=== PATIENT | female | born 1990 | race Caucasian/White ===

== ENCOUNTER 2016-09-04 22:55 | Emergency (ER) | payer OTHER ==
[~2016-09-04 22:55] MED LIST: 'PARAFON FORTE500 M1 PO; ACYCLOVIR800 MG PO; AMOXICILLIN500 MG PO; ANAPROX DS550 MG PO; ANUSOL-HC25 MG R; BACTRIM DS 8001 TA1 PO; BENADRYL25 M2 PO; BUSPAR15 MG PO; CATAFLAM50 MG PO; CEPHALEXIN500 M1 PO; CORTISPORIN SUS10 ML OT; DONNATAL 5 ML5 ML PO; ELIMITE 5%60 GM T; FIORICET 325 MG1 TAB PO; GLIPIZIDE10 M2 PO; GLUCOTROL5 MG PO; HYDROCODONE BIT1 T11 PO; KEFLEX500 MG PO; LANTUS100 U/ML SC; LANTUS100 U/ML SQ; LEVEMIR FLEX100 U/ML SC; LIDEX 0.05% CRE15 GM T; LIPITOR10 MG PO; LISINOPRIL HCTZ1 TAB PO; LISINOPRIL10 MG PO; MACROBID100 M1 PO; METFORMIN HCL500 MG PO; METFORMIN1000 MG PO; NAPROSYN500 MG PO; NIX CREME RINSE60 ML TP; NKHM PO; NOVOLOG10 ML SC; PANTOPRAZOLE SO40 MG PO; PEPCID20 MG PO; PEPCID40 MG PO; PREDNICOT20 MG PO; PREDNISONE10 MG PO; PRENATAL1 TA3 PO; PYRIDIUM200 M1 PO; PYRIDIUM200 MG PO; TRAMADOL HCL50 MG PO; ULTRAM50 MG PO; ZESTRIL10 MG PO; ZOFRAN4 MG PO; Zofran4 MG PO
[2016-09-04 23:02] VITALS: BP 125/66
[2016-09-04 23:25] LABS: BILIRUBIN NEGATIVE (NEGATIVE); BLOOD 3+ (NEGATIVE); CLARITY SL CLOUDY (CLEAR); COLOR YELLOW (YELLOW); GLUCOSE 3+ (NEGATIVE); KETONE NEGATIVE (NEGATIVE); LEUKO ESTERASE NEGATIVE (NEGATIVE); NITRITE NEGATIVE (NEGATIVE); PH 5.5 (5.0-9.0); PROTEIN TRACE (NEGATIVE); SPECIFIC GRAVITY 1.025 (1.005-1.030)
[2016-09-04 23:43] LABS: BACTERIA TRACE; EPITHELIAL CELLS 0-2; RBC 21-30 rbc/hpf (0-2)
[2016-09-04 23:44] LABS: MUCOUS 1+; URINE REFLEX COMMENT YES (NO)
[2016-09-05] MEDS ORDERED: AMOXICILLIN500 M2 PO (00:24)
[2016-09-05] MEDS ORDERED: FLUCONAZOLE100 MG PO (00:24)
[2016-09-05 00:41] LABS: BASO # 0.1 10*3/uL (0.0-0.1); BASO % 0.5 % (0.0-1.0); EOS # 0.1 10*3/uL (0.0-0.4); EOS % 1.2 % (1.0-4.0); HEMATOCRIT 38.6 % (37.0-47.0); HEMOGLOBIN 13.2 g/dl (12.0-16.0); LYMPH # 3.5 10*3/uL (1.3-4.4); MEAN CELL VOLUME 82.7 fl (81.0-99.0); MEAN CORPUSCULAR HGB 28.3 pg (27.0-31.0); MEAN CORPUSCULAR HGB CONC 34.2 g/dl (33.0-37.0); MEAN PLATELET VOLUME 9.5 fl (9.6-12.3); MONO # 0.6 10*3/uL (0.1-1.0); MONO % 6.9 % (3.0-9.0); NEUT # 4.9 10*3/uL (2.3-7.9); NEUT % 53.2 % (47.0-73.0); PLATELET COUNT AUTOMATED 265 10*3/uL (130-400); RED BLOOD COUNT 4.67 10*6/uL (4.10-5.10); RED CELL DISTRI WIDTH 12.2 % (0-14.5); WHITE BLOOD COUNT 9.2 10*3/uL (4.8-10.8)
[2016-09-05 00:54] LABS: BUN 9 mg/dl (7-24); CARBON DIOXIDE 28 mmol/L (21-32); CHLORIDE 104 mmol/L (98-107); EST GLOM FILT AFRICAN AMERICAN > 60 ml/min; GLUCOSE 395 mg/dL (65-99); POTASSIUM 3.6 mmol/L (3.5-5.1); SODIUM 137 mmol/L (136-145)
== END 2016-09-05 00:48 | disposition home or self-care (01) ==
LOC: ED 22:55
PROVIDERS: Emergency Medicine Emergency Medical Services; Student in an Organized Health Care Education/Training Program
DX: N76.0 Acute vaginitis (principal); E11.65 Type 2 diabetes mellitus with hyperglycemia; F17.200 Nicotine dependence, unspecified, uncomplicated; Z79.4 Long term (current) use of insulin; Z79.899 Other long term (current) drug therapy

== ENCOUNTER 2016-11-09 15:29 | Emergency (ER) | payer OTHER ==
[~2016-11-09] VITALS: Wt 129.3 kg
[~2016-11-09 15:29] MED LIST changes: +AMOXICILLIN500 M2 PO; +FLUCONAZOLE100 MG PO
[2016-11-09 15:43] VITALS: BP 151/100
[2016-11-09] MEDS ORDERED: BACTRIM DS 8001 TA1 PO (15:54)
== END 2016-11-09 17:46 | disposition home or self-care (01) ==
LOC: ED 15:29
DX: N61.1 Abscess of the breast and nipple (principal); E11.9 Type 2 diabetes mellitus without complications; Z79.899 Other long term (current) drug therapy; Z79.4 Long term (current) use of insulin; Z90.49 Acquired absence of other specified parts of digestive tract

== ENCOUNTER 2017-01-04 20:16 | Emergency (ER) | payer OTHER ==
[~2017-01-04] VITALS: Ht 165.1 cm; Wt 122.5 kg
[2017-01-04 20:20] VITALS: BP 162/100
[2017-01-04 20:38] LABS: BILIRUBIN NEGATIVE (NEGATIVE); BLOOD NEGATIVE (NEGATIVE); CLARITY SL CLOUDY (CLEAR); COLOR YELLOW (YELLOW); GLUCOSE 3+ (NEGATIVE); KETONE TRACE (NEGATIVE); LEUKO ESTERASE NEGATIVE (NEGATIVE); NITRITE NEGATIVE (NEGATIVE); PH 5.5 (5.0-9.0); SPECIFIC GRAVITY 1.015 (1.005-1.030); UROBILINOGEN 0.2 E.U./dl (0.2-1.0)
[2017-01-04 20:45] LABS: BACTERIA 2+; EPITHELIAL CELLS 15-20; RBC 16-20 rbc/hpf (0-2); YEAST 1+
[2017-01-04] MEDS ORDERED: FLUCONAZOLE100 MG PO (21:00)
== END 2017-01-04 22:08 | disposition home or self-care (01) ==
LOC: ED 20:16
PROVIDERS: Emergency Medicine Emergency Medical Services
DX: B37.3 Candidiasis of vulva and vagina (principal); E11.9 Type 2 diabetes mellitus without complications; Z90.49 Acquired absence of other specified parts of digestive tract; Z79.4 Long term (current) use of insulin; Z79.899 Other long term (current) drug therapy

== ENCOUNTER 2018-11-13 12:09 | Inpatient (IN) | payer OTHER ==
[~2018-11-13] VITALS: Ht 165.1 cm; Wt 114.1 kg
[~2018-11-13 12:09] MED LIST changes: +DIFLUCAN150 MG PO
[2018-11-13 12:10] VITALS: BP 171/98
[2018-11-13 12:39] LABS: BASO % 0.1 % (0.0-1.0); EOS # 0.2 10*3/uL (0.0-0.4); EOS % 2.1 % (1.0-4.0); HEMATOCRIT 50.6 % (37.0-47.0); HEMOGLOBIN 17.4 g/dl (12.0-16.0); LYMPH # 1.5 10*3/uL (1.3-4.4); LYMPH % 19.5 % (27.0-41.0); MEAN CELL VOLUME 83.1 fl (81.0-99.0); MEAN CORPUSCULAR HGB 28.6 pg (27.0-31.0); MEAN CORPUSCULAR HGB CONC 34.4 g/dl (33.0-37.0); MEAN PLATELET VOLUME 9.7 fl (9.6-12.3); MONO # 0.9 10*3/uL (0.1-1.0); MONO % 12.1 % (3.0-9.0); NEUT # 5.1 10*3/uL (2.3-7.9); NEUT % 65.9 % (47.0-73.0); PLATELET COUNT AUTOMATED 299 10*3/uL (130-400); RED BLOOD COUNT 6.09 10*6/uL (4.10-5.10); RED CELL DISTRI WIDTH 12.3 % (0-14.5); WHITE BLOOD COUNT 7.8 10*3/uL (4.8-10.8)
[2018-11-13 12:48] LABS: BILIRUBIN 2+ (NEGATIVE); BLOOD NEGATIVE (NEGATIVE); CLARITY CLOUDY (CLEAR); COLOR YELLOW (YELLOW); GLUCOSE 1+ (NEGATIVE); KETONE 3+ (NEGATIVE); LEUKO ESTERASE NEGATIVE (NEGATIVE); NITRITE POSITIVE (NEGATIVE); SPECIFIC GRAVITY >= 1.030 (1.005-1.030)
[2018-11-13 12:53] LABS: ALBUMIN 3.8 gm/dl (3.1-4.5); ALKALINE PHOSPHATASE 89 U/L (45-117); BUN 19 mg/dl (7-24); CHLORIDE 100 mmol/L (98-107); CREATININE 0.72 mg/dL (0.55-1.02); SGOT/AST 32 IU/L (3-35); SGPT/ALT 42 U/L (12-78); SODIUM 132 mmol/L (136-145); TOTAL PROTEIN 8.3 gm/dL (6.4-8.2)
[2018-11-13 12:57] LABS: POTASSIUM 3.6 mmol/L (3.5-5.1)
[2018-11-13 13:23] LABS: BACTERIA 3+; YEAST 1+
--- NOTE | 2018-11-13 13:34 | NUR ---
THE PT ASKED FOR SOMETHING TO HELP WITH HER DIARRHEA. MULUGETA CATALAN WAS NOTIFIED OF PT REQUEST
[2018-11-13 15:10] VITALS: BP 127/90
--- NOTE | 2018-11-13 15:10 | NUR ---
A 28, admitted to 5E, under the services of JULIUS Coleman DO with a diagnosis of UTI, UNCONTROLLLED DM. Chief complaint is NAUSEA/VOMITING/DIARRHEA. Patient arrived via wheel chair from ER. Monitor applied. Initial assessment completed. Vital signs taken and recorded. JULIUS COLEMAN DO notified of admission to the unit. Orders received. See assessment for past medical history, medications and allergies. Patient and/or family oriented to unit. [address] visitation policy reviewed. Clothing/patient valuable form completed. MANISH GTZ
[2018-11-13 16:00] VITALS: BP 127/90
--- NOTE | 2018-11-13 17:00 | NUR ---
[facility] called re: med rec. Pharmacist states she hasn't had any home medications filled since May 2017.
[2018-11-13 20:00] VITALS: BP 127/73
[2018-11-14] VITALS: BP 128/77
[2018-11-14 06:16] LABS: BASO % 0.3 % (0.0-1.0); EOS # 0.1 10*3/uL (0.0-0.4); EOS % 1.8 % (1.0-4.0); HEMATOCRIT 40.8 % (37.0-47.0); HEMOGLOBIN 13.9 g/dl (12.0-16.0); LYMPH # 2.5 10*3/uL (1.3-4.4); LYMPH % 31.6 % (27.0-41.0); MEAN CELL VOLUME 84.3 fl (81.0-99.0); MEAN CORPUSCULAR HGB 28.7 pg (27.0-31.0); MEAN CORPUSCULAR HGB CONC 34.1 g/dl (33.0-37.0); MEAN PLATELET VOLUME 9.8 fl (9.6-12.3); MONO # 0.9 10*3/uL (0.1-1.0); MONO % 11.7 % (3.0-9.0); NEUT # 4.3 10*3/uL (2.3-7.9); NEUT % 54.3 % (47.0-73.0); PLATELET COUNT AUTOMATED 225 10*3/uL (130-400); RED BLOOD COUNT 4.84 10*6/uL (4.10-5.10); RED CELL DISTRI WIDTH 12.4 % (0-14.5); WHITE BLOOD COUNT 7.9 10*3/uL (4.8-10.8)
[2018-11-14 06:36] LABS: ALBUMIN 2.9 gm/dl (3.1-4.5); ALKALINE PHOSPHATASE 65 U/L (45-117); BUN 15 mg/dl (7-24); CHLORIDE 107 mmol/L (98-107); CREATININE 0.62 mg/dL (0.55-1.02); PHOSPHOROUS 2.8 mg/dL (2.5-4.9); SGOT/AST 18 IU/L (3-35); SGPT/ALT 25 U/L (12-78); SODIUM 137 mmol/L (136-145); TOTAL PROTEIN 6.2 gm/dL (6.4-8.2)
[2018-11-14 08:01] VITALS: BP 117/76
--- NOTE | 2018-11-14 10:18 | NUR ---
[facility] CALLED WITH CRITICAL STOOL RESULT. Ilda PEARSON NP NOTIFIED.
--- NOTE | 2018-11-14 10:51 | NUR ---
DR AVELAR'S OFFICE NOTIFIED OF CONSULT.
--- NOTE | 2018-11-14 11:00 | NUR ---
ESTRADA ASTORGA NOTIFIED OF +PARASITE STOOL. SHE STATES NO NEED FOR ISOLATION.
[2018-11-14 12:00] VITALS: BP 130/76
--- NOTE | 2018-11-14 14:15 | NUR ---
Sales Development Manager in to talk to patient. Patient states lives at HOME with FRIEND. There are BASEMENT steps in the home. Physician: BRITTNEY Pharmacy: [facility] health services: NONE Patient's level of ADLs: INDEPENDENT Patient has working utilities: YES DME: [facility] Follow-up physician's appointment after d/c: WILL BE MADE BY HOSPITALIST NURSE JEREMYOR ON DISCHARGE Does patient want to access PORTAL?: NO Discharge plan PT LIVES AT HOME WITH HER DAUGHTER AND HER FRIEND. DENIES SHE WILL HAVE NEEDS ON DISCHARGE. CAN BE DISCHARGED TO HOME WHEN MEDICALLY STABLE. WILL CONTINUE TO MONITOR. WILL CONTINUE TO MONITOR.. CONCHA ALTAMIRANO
[2018-11-14 15:00] VITALS: BP 124/77
[2018-11-14 16:00] VITALS: BP 124/77
[2018-11-14 20:00] VITALS: BP 118/62
--- NOTE | 2018-11-14 20:57 | NUR ---
PATIENT STILL COMPLAINING OF DIARRHEA EVERYTIME SHE EATS. STATES I[facility]UM HELPED AT FIRST BUT IS STILL HAVING DIARRHEA. NO OTHER COMPLAINTS VOICED AT THIS TIME. IV FLUIDS INFUSING. BED IN LOWEST POSITION CALL LIGHT WITHIN REACH. WILL CONTINUE TO MONITOR
--- NOTE | 2018-11-14 21:53 | NUR ---
24 HR chart check completed.
[2018-11-15] VITALS: BP 117/67
[2018-11-15 06:25] LABS: BASO % 0.2 % (0.0-1.0); EOS # 0.2 10*3/uL (0.0-0.4); EOS % 2.5 % (1.0-4.0); HEMATOCRIT 35.7 % (37.0-47.0); HEMOGLOBIN 12.3 g/dl (12.0-16.0); LYMPH # 2.2 10*3/uL (1.3-4.4); MEAN CORPUSCULAR HGB 28.9 pg (27.0-31.0); MEAN CORPUSCULAR HGB CONC 34.5 g/dl (33.0-37.0); MEAN PLATELET VOLUME 9.5 fl (9.6-12.3); MONO # 0.7 10*3/uL (0.1-1.0); MONO % 10.3 % (3.0-9.0); NEUT # 3.4 10*3/uL (2.3-7.9); NEUT % 52.8 % (47.0-73.0); PLATELET COUNT AUTOMATED 203 10*3/uL (130-400); RED BLOOD COUNT 4.25 10*6/uL (4.10-5.10); RED CELL DISTRI WIDTH 12.6 % (0-14.5); WHITE BLOOD COUNT 6.4 10*3/uL (4.8-10.8)
[2018-11-15 06:32] LABS: ALBUMIN 2.7 gm/dl (3.1-4.5); ALKALINE PHOSPHATASE 57 U/L (45-117); BUN 13 mg/dl (7-24); CHLORIDE 113 mmol/L (98-107); CREATININE 0.43 mg/dL (0.55-1.02); POTASSIUM 3.4 mmol/L (3.5-5.1); SGOT/AST 16 IU/L (3-35); SGPT/ALT 23 U/L (12-78); SODIUM 141 mmol/L (136-145); TOTAL PROTEIN 5.8 gm/dL (6.4-8.2)
[2018-11-15 08:00] VITALS: BP 119/68
--- NOTE | 2018-11-15 08:26 | NUR ---
Shift chart check completed.
[2018-11-15] MEDS ORDERED: Lantus SC ×2 (11:00→11:03)
[2018-11-15] MEDS ORDERED: AMINOPHYLLIN200 MG PO (11:00)
[2018-11-15] MEDS ORDERED: ALINIA500 MG PO (11:02)
[2018-11-15] MEDS ORDERED: LANTUS SOL100 UNIT/1 SC (11:06)
--- NOTE | 2018-11-15 11:50 | NUR ---
Discharge instructions reviewed with patient/family. Patient receptive and verbalizes understanding. Follow-up care understood. Written instructions given to patient/family. understands discharge mediations, pick remover at [facility] pharmacy. iv removed, dressing applied. declined wheelchair for discharge DAVID JACQUES
[2018-11-15 11:55] LABS: BILIRUBIN NEGATIVE (NEGATIVE); BLOOD NEGATIVE (NEGATIVE); CLARITY CLEAR (CLEAR); COLOR YELLOW (YELLOW); GLUCOSE 2+ (NEGATIVE); KETONE 1+ (NEGATIVE); LEUKO ESTERASE NEGATIVE (NEGATIVE); NITRITE NEGATIVE (NEGATIVE); SPECIFIC GRAVITY >= 1.030 (1.005-1.030)
[2018-11-15 12:07] LABS: MUCOUS TRACE
== END 2018-11-15 11:50 | disposition home or self-care (01) | DRG 372 ==
LOC: ED 12:09 → EDHOLD 13:40 → 5E 13:40
PROVIDERS: Internal Medicine; Nurse Practitioner Family; Registered Nurse; ADMIT Internal Medicine
DX: A07.2 Cryptosporidiosis (principal); N30.01 Acute cystitis with hematuria; E44.0 Moderate protein-calorie malnutrition; Z68.41 Body mass index [BMI] 40.0-44.9, adult; A09 Infectious gastroenteritis and colitis, unspecified; F32.9 Major depressive disorder, single episode, unspecified; I10 Essential (primary) hypertension; E86.0 Dehydration; R82.4 Acetonuria; F41.9 Anxiety disorder, unspecified; E78.5 Hyperlipidemia, unspecified; E13.65 Other specified diabetes mellitus with hyperglycemia; R00.0 Tachycardia, unspecified; Z91.14 Patient's other noncompliance with medication regimen; Z79.84 Long term (current) use of oral hypoglycemic drugs; Z90.49 Acquired absence of other specified parts of digestive tract; Z98.891 History of uterine scar from previous surgery; Z82.49 Family history of ischemic heart disease and other diseases of the circulatory system; Z79.899 Other long term (current) drug therapy

== ENCOUNTER → 2019-05-11 | Outpatient (CLI) | payer OTHER ==
[~2019-05-11] MED LIST changes: +ALINIA500 MG PO; +AMINOPHYLLIN200 MG PO; +LANTUS SOL100 UNIT/1 SC; +Lantus SC
[2019-05-11 17:30] LABS: BASO # 0.1 10*3/uL (0.0-0.1); BASO % 0.5 % (0.0-1.0); EOS # 0.1 10*3/uL (0.0-0.4); EOS % 1.1 % (1.0-4.0); HEMATOCRIT 42.1 % (37.0-47.0); LYMPH # 3.2 10*3/uL (1.3-4.4); LYMPH % 32.8 % (27.0-41.0); MEAN CELL VOLUME 85.1 fl (81.0-99.0); MEAN CORPUSCULAR HGB 28.3 pg (27.0-31.0); MEAN CORPUSCULAR HGB CONC 33.3 g/dl (33.0-37.0); MEAN PLATELET VOLUME 9.5 fl (9.6-12.3); MONO # 0.7 10*3/uL (0.1-1.0); MONO % 6.8 % (3.0-9.0); NEUT # 5.8 10*3/uL (2.3-7.9); NEUT % 58.4 % (47.0-73.0); PLATELET COUNT AUTOMATED 299 10*3/uL (130-400); RED BLOOD COUNT 4.95 10*6/uL (4.10-5.10); RED CELL DISTRI WIDTH 12.4 % (0-14.5); RETICULOCYTE % 2.48 % (0.50-2.50); WHITE BLOOD COUNT 9.9 10*3/uL (4.8-10.8)
[2019-05-11 18:05] LABS: ALBUMIN 3.7 gm/dl (3.1-4.5); BUN 15 mg/dl (7-24); CHLORIDE 103 mmol/L (98-107); CHOLESTEROL 195 mg/dL (<200); CREATININE 0.66 mg/dL (0.55-1.02); GAMMA GLUTAMYL TRANSPEPTIDASE 27 U/L (5-55); HDL CHOLESTEROL 41 mg/dl (40-60); IRON 52 ug/dL (50-170); LDL CHOLESTEROL 101 mg/dL (9-159); POTASSIUM 3.7 mmol/L (3.5-5.1); SGOT/AST 17 IU/L (3-35); SGPT/ALT 40 U/L (12-78); SODIUM 135 mmol/L (136-145); T3 UPTAKE 28 % (31-39); THYROXINE (T4) TOTAL 10.9 ug/dl (4.8-13.9); TOTAL IRON BINDING CAPACITY 268 ug/dl (250-450); TOTAL PROTEIN 7.7 gm/dL (6.4-8.2); TRIGLYCERIDES 267 mg/dl (<150); VLDL CHOLESTEROL 53 mg/dL (6-40)
[2019-05-11 18:09] LABS: VITAMIN D, 25-HYDROXY 16.6 ng/mL (30-100)
[2019-05-11 18:10] LABS: FERRITIN 211.8 ng/mL (10.0-291.0)
[2019-05-11 18:13] LABS: ALKALINE PHOSPHATASE 86 U/L (45-117)
[2019-05-11 18:53] LABS: BACTERIA 1+; EPITHELIAL CELLS TNTC; MUCOUS 2+; WBC 0-2 wbc/hpf (0-5)
== END | disposition home or self-care (01) ==
LOC: LAB 16:32
PROVIDERS: Family Medicine
DX: E55.9 Vitamin D deficiency, unspecified (principal); E78.5 Hyperlipidemia, unspecified; R53.83 Other fatigue; R79.89 Other specified abnormal findings of blood chemistry

== ENCOUNTER 2020-12-08 16:20 | Emergency (ER) | payer OTHER ==
[~2020-12-08] VITALS: Ht 180.3 cm; Wt 97.5 kg
[2020-12-08 17:34] VITALS: BP 130/85
== END 2020-12-08 20:57 | disposition home or self-care (01) ==
LOC: ED 16:20
DX: J02.9 Acute pharyngitis, unspecified (principal); R51.9 Headache, unspecified; R05 Cough; Z79.2 Long term (current) use of antibiotics; Z79.899 Other long term (current) drug therapy; Z98.890 Other specified postprocedural states; Z90.49 Acquired absence of other specified parts of digestive tract; Z90.89 Acquired absence of other organs

== ENCOUNTER 2021-07-29 22:59 | Emergency (ER) | payer OTHER ==
[~2021-07-29] VITALS: Ht 165.1 cm; Wt 120.2 kg
[2021-07-29 23:11] VITALS: BP 142/86
[2021-07-30 01:51] LABS: BILIRUBIN Negative (Negative); BLOOD Negative (Negative); CLARITY Clear (Clear); COLOR Yellow (Yellow); GLUCOSE 3+ (Negative); KETONE Negative (Negative); LEUKO ESTERASE Negative (Negative); NITRITE Negative (Negative); PH 6.5 (4.5-8.0); SPECIFIC GRAVITY >= 1.030 (1.001-1.030)
[2021-07-30 01:57] LABS: BASO # 0.1 10*3/uL (0.0-0.1); BASO % 0.5 % (0.0-1.0); EOS # 0.1 10*3/uL (0.0-0.4); EOS % 1.1 % (1.0-4.0); HEMATOCRIT 41.4 % (37.0-47.0); LYMPH # 2.9 10*3/uL (1.3-4.4); LYMPH % 31.5 % (27.0-41.0); MEAN CELL VOLUME 83.3 fl (81.0-99.0); MEAN CORPUSCULAR HGB CONC 33.6 g/dl (33.0-37.0); MEAN PLATELET VOLUME 9.4 fl (9.6-12.3); MONO # 0.7 10*3/uL (0.1-1.0); MONO % 7.1 % (3.0-9.0); NEUT # 5.5 10*3/uL (2.3-7.9); NEUT % 59.6 % (47.0-73.0); PLATELET COUNT AUTOMATED 273 10*3/uL (130-400); RED BLOOD COUNT 4.97 10*6/uL (4.10-5.10); WHITE BLOOD COUNT 9.2 10*3/uL (4.8-10.8)
[2021-07-30 02:20] LABS: ALKALINE PHOSPHATASE 76 U/L (45-117); BUN 8 mg/dl (7-24); CHLORIDE 105 mmol/L (98-107); CREATININE 0.57 mg/dL (0.55-1.02); LIPASE 110 U/L (73-393); POTASSIUM 3.9 mmol/L (3.5-5.1); SGOT/AST 18 IU/L (3-35); SGPT/ALT 41 U/L (12-78); SODIUM 136 mmol/L (136-145); TOTAL PROTEIN 7.4 gm/dL (6.4-8.2)
[2021-07-30 02:27] LABS: EPITHELIAL CELLS 31-40; RBC 0-2 rbc/hpf (0-2); WBC 0-2 wbc/hpf (0-5)
[2021-07-30] MEDS ORDERED: VIBRAMYCIN100 MG PO (04:08)
== END 2021-07-30 04:52 | disposition home or self-care (01) ==
LOC: ED 22:59
PROVIDERS: Emergency Medicine
DX: L03.316 Cellulitis of umbilicus (principal); E10.65 Type 1 diabetes mellitus with hyperglycemia; I10 Essential (primary) hypertension; Z90.49 Acquired absence of other specified parts of digestive tract

== ENCOUNTER 2021-09-01 01:34 | Inpatient (IN) | payer OTHER ==
[~2021-09-01] VITALS: Ht 165.1 cm; Wt 111.6 kg
[2021-09-01] VITALS (12 sets, daily range): BP systolic 108–150; BP diastolic 62–93
[~2021-09-01 01:34] MED LIST changes: +VIBRAMYCIN100 MG PO
[2021-09-01 04:47] LABS: BASO # 0.1 10*3/uL (0.0-0.1); BASO % 0.5 % (0.0-1.0); EOS # 0.1 10*3/uL (0.0-0.4); EOS % 1.2 % (1.0-4.0); HEMATOCRIT 43.5 % (37.0-47.0); LYMPH % 29.7 % (27.0-41.0); MEAN CELL VOLUME 83.2 fl (81.0-99.0); MEAN CORPUSCULAR HGB 28.5 pg (27.0-31.0); MEAN CORPUSCULAR HGB CONC 34.3 g/dl (33.0-37.0); MEAN PLATELET VOLUME 9.3 fl (9.6-12.3); MONO # 0.7 10*3/uL (0.1-1.0); MONO % 6.5 % (3.0-9.0); NEUT # 6.3 10*3/uL (2.3-7.9); NEUT % 61.8 % (47.0-73.0); PLATELET COUNT AUTOMATED 277 10*3/uL (130-400); RED BLOOD COUNT 5.23 10*6/uL (4.10-5.10); RED CELL DISTRI WIDTH 12.2 % (0-14.5); WHITE BLOOD COUNT 10.2 10*3/uL (4.8-10.8)
[2021-09-01 05:04] LABS: ALKALINE PHOSPHATASE 88 U/L (45-117); BUN 16 mg/dl (7-24); CHLORIDE 100 mmol/L (98-107); CREATININE 0.63 mg/dL (0.55-1.02); POTASSIUM 3.7 mmol/L (3.5-5.1); SGOT/AST 15 IU/L (3-35); SGPT/ALT 32 U/L (12-78); SODIUM 133 mmol/L (136-145); TOTAL PROTEIN 7.5 gm/dL (6.4-8.2)
[2021-09-01 06:25] LABS: BILIRUBIN Negative (Negative); BLOOD Negative (Negative); CLARITY Clear (Clear); COLOR Yellow (Yellow); GLUCOSE 3+ (Negative); KETONE Trace (Negative); LEUKO ESTERASE Negative (Negative); NITRITE Negative (Negative); SPECIFIC GRAVITY >= 1.030 (1.001-1.030)
[2021-09-01 06:37] LABS: RBC 0-2 rbc/hpf (0-2)
[2021-09-01] MEDS ORDERED: LANTUS SOL100 UNIT/1 SC (11:19)
[2021-09-01] MEDS ORDERED: METFORMIN HYDR500 MG PO (11:20)
[2021-09-01] MEDS ORDERED: OMEPRAZOLE10 MG PO (11:20)
[2021-09-01] MEDS ORDERED: LISINOPRIL2.5 MG PO (11:20)
[2021-09-01] MEDS ORDERED: DOXYCYCLINE HY100 M3 PO (11:21)
[2021-09-02] VITALS: BP 133/83
[2021-09-02 06:15] LABS: BASO % 0.5 % (0.0-1.0); EOS # 0.1 10*3/uL (0.0-0.4); EOS % 1.5 % (1.0-4.0); HEMATOCRIT 38.3 % (37.0-47.0); LYMPH # 2.7 10*3/uL (1.3-4.4); LYMPH % 33.5 % (27.0-41.0); MEAN CORPUSCULAR HGB 28.5 pg (27.0-31.0); MEAN CORPUSCULAR HGB CONC 33.9 g/dl (33.0-37.0); MEAN PLATELET VOLUME 9.5 fl (9.6-12.3); MONO # 0.7 10*3/uL (0.1-1.0); MONO % 8.8 % (3.0-9.0); NEUT # 4.5 10*3/uL (2.3-7.9); NEUT % 55.3 % (47.0-73.0); PLATELET COUNT AUTOMATED 256 10*3/uL (130-400); RED BLOOD COUNT 4.56 10*6/uL (4.10-5.10); RED CELL DISTRI WIDTH 12.1 % (0-14.5); WHITE BLOOD COUNT 8.1 10*3/uL (4.8-10.8)
[2021-09-02 06:20] LABS: CHLORIDE 108 mmol/L (98-107); POTASSIUM 3.3 mmol/L (3.5-5.1); SODIUM 138 mmol/L (136-145)
[2021-09-02 06:38] LABS: ALKALINE PHOSPHATASE 75 U/L (45-117); BUN 17 mg/dl (7-24); CHOLESTEROL 157 mg/dL (<200); CREATININE 0.53 mg/dL (0.55-1.02); LDL CHOLESTEROL 100 mg/dL (9-159); SGOT/AST 20 IU/L (3-35); SGPT/ALT 30 U/L (12-78); TOTAL PROTEIN 6.6 gm/dL (6.4-8.2); TRIGLYCERIDES 117 mg/dl (<150)
[2021-09-02 08:00] VITALS: BP 120/64
[2021-09-02 12:00] VITALS: BP 140/77
[2021-09-02 14:00] VITALS: BP 140/77
[2021-09-02 16:00] VITALS: BP 121/72
[2021-09-02 20:00] VITALS: BP 123/70
[2021-09-03] VITALS: BP 123/66
[2021-09-03 06:21] LABS: BUN 15 mg/dl (7-24); CHLORIDE 111 mmol/L (98-107); POTASSIUM 3.8 mmol/L (3.5-5.1); SODIUM 140 mmol/L (136-145)
[2021-09-03 06:22] LABS: BASO # 0.1 10*3/uL (0.0-0.1); BASO % 0.6 % (0.0-1.0); EOS # 0.1 10*3/uL (0.0-0.4); EOS % 1.2 % (1.0-4.0); HEMATOCRIT 35.1 % (37.0-47.0); LYMPH # 2.6 10*3/uL (1.3-4.4); LYMPH % 29.9 % (27.0-41.0); MEAN CELL VOLUME 85.2 fl (81.0-99.0); MEAN CORPUSCULAR HGB 28.9 pg (27.0-31.0); MEAN CORPUSCULAR HGB CONC 33.9 g/dl (33.0-37.0); MEAN PLATELET VOLUME 9.5 fl (9.6-12.3); MONO # 0.8 10*3/uL (0.1-1.0); MONO % 8.8 % (3.0-9.0); NEUT # 5.1 10*3/uL (2.3-7.9); PLATELET COUNT AUTOMATED 233 10*3/uL (130-400); RED BLOOD COUNT 4.12 10*6/uL (4.10-5.10); RED CELL DISTRI WIDTH 12.1 % (0-14.5); WHITE BLOOD COUNT 8.7 10*3/uL (4.8-10.8)
[2021-09-03 08:00] VITALS: BP 112/62
[2021-09-03 12:00] VITALS: BP 117/63
[2021-09-03] MEDS ORDERED: VITAMIN D350 MC2 PO (13:04)
[2021-09-03] MEDS ORDERED: AUGMENTIN 875-875 MG PO (13:06)
== END 2021-09-03 14:11 | disposition home or self-care (01) | DRG 364 ==
LOC: ED 01:34 → 5E 09:15 → EDHOLD 09:15 → 5E 15:18
PROVIDERS: Emergency Medicine; Family Medicine; Internal Medicine; ADMIT Internal Medicine; ATTEND Internal Medicine
PROC: 0W9F0ZZ Drainage of Abdominal Wall, Open Approach (ICD-10-PCS; principal; 2021-09-01)
DX: L02.214 Cutaneous abscess of groin (principal); N73.9 Female pelvic inflammatory disease, unspecified; E11.65 Type 2 diabetes mellitus with hyperglycemia; F32.A Depression, unspecified; I10 Essential (primary) hypertension; E87.1 Hypo-osmolality and hyponatremia; Z90.49 Acquired absence of other specified parts of digestive tract; Z98.891 History of uterine scar from previous surgery; Z83.3 Family history of diabetes mellitus; Z82.49 Family history of ischemic heart disease and other diseases of the circulatory system; Z79.899 Other long term (current) drug therapy; D25.9 Leiomyoma of uterus, unspecified

== ENCOUNTER → 2021-09-08 | Outpatient (CLI) | payer OTHER ==
[~2021-09-08] MED LIST changes: +AUGMENTIN 875-875 MG PO; +DOXYCYCLINE HY100 M3 PO; +LISINOPRIL2.5 MG PO; +METFORMIN HYDR500 MG PO; +OMEPRAZOLE10 MG PO; +VITAMIN D350 MC2 PO
== END | disposition home or self-care (01) ==
LOC: WOUNDCARE 01:51
PROVIDERS: ATTEND Surgery
DX: T81.89XA Other complications of procedures, not elsewhere classified, initial encounter (principal); L02.214 Cutaneous abscess of groin; E11.9 Type 2 diabetes mellitus without complications; I10 Essential (primary) hypertension; Z90.49 Acquired absence of other specified parts of digestive tract; Z79.4 Long term (current) use of insulin; Y92.238 Other place in hospital as the place of occurrence of the external cause; Y83.8 Other surgical procedures as the cause of abnormal reaction of the patient, or of later complication, without mention of misadventure at the time of the procedure

== ENCOUNTER → 2021-09-15 | Outpatient (CLI) | payer OTHER | END | disposition home or self-care (01) | LOC: WOUNDCARE 03:29 | PROVIDERS: ATTEND Surgery | DX: T81.89XD Other complications of procedures, not elsewhere classified, subsequent encounter (principal); L02.214 Cutaneous abscess of groin; E11.9 Type 2 diabetes mellitus without complications; I89.0 Lymphedema, not elsewhere classified; I10 Essential (primary) hypertension; Z90.49 Acquired absence of other specified parts of digestive tract; Y83.8 Other surgical procedures as the cause of abnormal reaction of the patient, or of later complication, without mention of misadventure at the time of the procedure ==

== ENCOUNTER 2021-10-07 08:26 | Emergency (ER) | payer OTHER ==
[~2021-10-07] VITALS: Ht 165.1 cm; Wt 113.4 kg
[2021-10-07 08:32] VITALS: BP 131/94
[2021-10-07] MEDS ORDERED: Motrin,Rufen800 MG PO (08:53)
[2021-10-07] MEDS ORDERED: AMOXICILLIN875 MG PO (08:53)
== END 2021-10-07 09:00 | disposition home or self-care (01) ==
LOC: ED 08:26
DX: K08.89 Other specified disorders of teeth and supporting structures (principal); Z90.89 Acquired absence of other organs; Z90.49 Acquired absence of other specified parts of digestive tract; Z98.890 Other specified postprocedural states

== ENCOUNTER → 2022-01-22 | Outpatient (CLI) | payer OTHER ==
[~2022-01-22] MED LIST changes: +AMOXICILLIN875 MG PO; +Motrin,Rufen800 MG PO
[2022-01-22 11:40] LABS: BASO # 0.1 10*3/uL (0.0-0.1); BASO % 0.6 % (0.0-1.0); EOS # 0.1 10*3/uL (0.0-0.4); EOS % 1.4 % (1.0-4.0); HEMATOCRIT 42.9 % (37.0-47.0); LYMPH # 2.8 10*3/uL (1.3-4.4); LYMPH % 32.1 % (27.0-41.0); MEAN CELL VOLUME 83.1 fl (81.0-99.0); MEAN CORPUSCULAR HGB 28.7 pg (27.0-31.0); MEAN CORPUSCULAR HGB CONC 34.5 g/dl (33.0-37.0); MEAN PLATELET VOLUME 9.5 fl (9.6-12.3); MONO # 0.6 10*3/uL (0.1-1.0); MONO % 7.2 % (3.0-9.0); NEUT % 58.4 % (47.0-73.0); NUCLEATED RED BLOOD CELL 0.2 % (0.0-0.0); PLATELET COUNT AUTOMATED 272 10*3/uL (130-400); RED BLOOD COUNT 5.16 10*6/uL (4.10-5.10); RED CELL DISTRI WIDTH 12.2 % (0-14.5); WHITE BLOOD COUNT 8.6 10*3/uL (4.8-10.8)
[2022-01-22 11:58] LABS: ALKALINE PHOSPHATASE 89 U/L (45-117); BUN 13 mg/dl (7-24); CHLORIDE 103 mmol/L (98-107); CHOLESTEROL 193 mg/dL (<200); CREATININE 0.69 mg/dL (0.55-1.02); GAMMA GLUTAMYL TRANSPEPTIDASE 37 U/L (5-55); IRON 56 ug/dL (50-170); LDL CHOLESTEROL 108 mg/dL (9-159); SGOT/AST 23 IU/L (3-35); SGPT/ALT 41 U/L (12-78); SODIUM 134 mmol/L (136-145); TOTAL PROTEIN 8.1 gm/dL (6.4-8.2); TRIGLYCERIDES 230 mg/dl (<150)
[2022-01-22 12:04] LABS: B-hCG (QUALITATIVE) NEGATIVE (NEGATIVE)
[2022-01-22 12:16] LABS: BILIRUBIN Negative (Negative); BLOOD Negative (Negative); CLARITY Clear (Clear); COLOR Yellow (Yellow); GLUCOSE 3+ (Negative); KETONE Negative (Negative); LEUKO ESTERASE Negative (Negative); NITRITE Negative (Negative); PH 5.5 (4.5-8.0); SPECIFIC GRAVITY >= 1.030 (1.001-1.030)
[2022-01-22 12:23] LABS: FERRITIN 274.9 ng/mL (10.0-291.0); VITAMIN D, 25-HYDROXY 20.3 ng/mL (30-100)
[2022-01-22 12:42] LABS: BETA-HCG, QUANT < 1.0 mIU/mL (1-3)
[2022-01-22 13:35] LABS: BACTERIA TRACE; MUCOUS TRACE
[2022-01-23 05:06] LABS: FOLLICLE STIMULATING HORMONE 2.6 mIU/mL (.); LUTEINIZING HORMONE 4.7 mIU/mL (.); PROGESTERONE 12.5 ng/mL (.); PROLACTIN 8.7 ng/mL (4.8-23.3); SEX HORMONE BINDING GLOBULIN 23.2 nmol/L (24.6-122.0)
[2022-01-24 21:06] LABS: HUMAN GROWTH HORMONE <0.1 ng/mL (0.0-10.0)
[2022-01-27 14:07] LABS: DEHYDROEPIANDROSTERONE 74 ng/dL (31-701)
== END | disposition home or self-care (01) ==
LOC: LAB 11:01
PROVIDERS: ATTEND Family Medicine
DX: E78.5 Hyperlipidemia, unspecified (principal); E55.9 Vitamin D deficiency, unspecified; R53.83 Other fatigue; R79.89 Other specified abnormal findings of blood chemistry; R74.8 Abnormal levels of other serum enzymes

== ENCOUNTER 2023-01-27 18:30 | Emergency (ER) | payer SELFPAY ==
[~2023-01-27] VITALS: Wt 113.4 kg
[2023-01-27 18:43] VITALS: BP 173/99
[2023-01-27] MEDS ORDERED: PENICILLIN VK500 MG PO (19:41)
== END 2023-01-27 19:53 | disposition home or self-care (01) ==
LOC: ED 18:30
DX: K02.9 Dental caries, unspecified (principal); K08.89 Other specified disorders of teeth and supporting structures; F41.9 Anxiety disorder, unspecified; E11.9 Type 2 diabetes mellitus without complications; I10 Essential (primary) hypertension; F32.A Depression, unspecified; E78.00 Pure hypercholesterolemia, unspecified; Z90.49 Acquired absence of other specified parts of digestive tract; Z90.89 Acquired absence of other organs; Z98.890 Other specified postprocedural states

== ENCOUNTER 2023-04-19 13:03 | Emergency (ER) | payer SELFPAY ==
[~2023-04-19 13:03] MED LIST changes: +PENICILLIN VK500 MG PO
== END 2023-04-19 14:07 | disposition left against medical advice (07) ==
LOC: ED 13:03
DX: S99.921A Unspecified injury of right foot, initial encounter (principal); Z53.21 Procedure and treatment not carried out due to patient leaving prior to being seen by health care provider; X58.XXXA Exposure to other specified factors, initial encounter; Y93.89 Activity, other specified; Y92.89 Other specified places as the place of occurrence of the external cause; Y99.8 Other external cause status

== ENCOUNTER 2023-07-06 08:54 | Emergency (ER) | payer SELFPAY ==
[~2023-07-06] VITALS: Wt 116.6 kg
[2023-07-06 09:08] VITALS: BP 124/74
[2023-07-06] MEDS ORDERED: AZITHROMYCIN 250 MG TAB PO ONE (09:40)
[2023-07-06] MEDS ORDERED: ZITHROMAX250 MG PO (09:40)
== END 2023-07-06 09:43 | disposition home or self-care (01) ==
LOC: ED 08:54
DX: J06.9 Acute upper respiratory infection, unspecified (principal); F41.9 Anxiety disorder, unspecified; E11.9 Type 2 diabetes mellitus without complications; I10 Essential (primary) hypertension; F32.A Depression, unspecified; E78.00 Pure hypercholesterolemia, unspecified; Z90.49 Acquired absence of other specified parts of digestive tract; Z90.89 Acquired absence of other organs; Z98.890 Other specified postprocedural states

== ENCOUNTER 2023-08-29 11:25 | Emergency (ER) | payer SELFPAY ==
[~2023-08-29] VITALS: Ht 165.1 cm; Wt 115.7 kg
[~2023-08-29 11:25] MED LIST changes: +ZITHROMAX250 MG PO
[2023-08-29 11:53] VITALS: BP 157/88
[2023-08-29] MEDS ORDERED: AMOX-CLAV 875-1 EACH PO (12:03)
== END 2023-08-29 12:20 | disposition home or self-care (01) ==
LOC: ED 11:25
DX: K04.7 Periapical abscess without sinus (principal); K02.9 Dental caries, unspecified; F41.9 Anxiety disorder, unspecified; E11.9 Type 2 diabetes mellitus without complications; I10 Essential (primary) hypertension; F32.A Depression, unspecified; E78.00 Pure hypercholesterolemia, unspecified; Z90.49 Acquired absence of other specified parts of digestive tract; Z90.89 Acquired absence of other organs; Z98.890 Other specified postprocedural states; F17.200 Nicotine dependence, unspecified, uncomplicated